=== PATIENT | female | born 1970 | race Caucasian/White ===

== ENCOUNTER 2017-05-06 09:06 | Emergency (ER) | payer SELFPAY ==
[~2017-05-06 09:06] MED LIST: ALBU6.7H INH; BACT800T5 PO; PRED20 PO
[2017-05-06 09:07] VITALS: BP 161/94; PULSE 75; RESP 16; TEMP 98.1; O2SAT 98
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
[2017-05-06] MEDS ORDERED: ORPHENADRINE INJ 60 MG/2 ML AMP IM ONE (09:45)
[2017-05-06] MEDS ORDERED: KETOROLAC TROMETHAMINE 60 MG/2 ML (IM) VIAL IM ONE (09:45)
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
[2017-05-06] MEDS ORDERED: ROBA500T PO (10:50)
[2017-05-06] MEDS ORDERED: IBUP800T23 PO (10:50)
[2017-05-06 11:05] VITALS: RESP 16
== END 2017-05-06 11:22 | disposition home or self-care (01) ==
LOC: NEPD 09:06
DX: M54.6 Pain in thoracic spine (principal); R51 Headache; F17.200 Nicotine dependence, unspecified, uncomplicated; W22.8XXA Striking against or struck by other objects, initial encounter
CPT/HCPCS: 72072; 96372; 99284; J1885; J2360

== ENCOUNTER 2017-05-10 18:32 | Emergency (ER) | payer SELFPAY ==
[~2017-05-10] VITALS: Ht 165.1 cm; Wt 95.0 kg
[~2017-05-10 18:32] MED LIST changes: -ALBU6.7H INH; -BACT800T5 PO; +IBUP800T23 PO; -PRED20 PO; +ROBA500T PO
[2017-05-10 18:34] VITALS: BP 187/103; PULSE 84; RESP 20; TEMP 98.8; O2SAT 94
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
[2017-05-10] MEDS ORDERED: LORazepam 2 MG/ML VIAL IM ONE (19:30)
[2017-05-10] MEDS ORDERED: KETOROLAC TROMETHAMINE 60 MG/2 ML (IM) VIAL IM ONE (19:30)
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
[2017-05-10] MEDS ORDERED: BACL20TA PO (20:14)
[2017-05-10] MEDS ORDERED: CODE30TA2 PO (20:14)
[2017-05-10 20:20] VITALS: BP 170/81; PULSE 73; RESP 16; O2SAT 96
== END 2017-05-10 20:46 | disposition home or self-care (01) ==
LOC: NEPC 18:32
DX: G44.209 Tension-type headache, unspecified, not intractable (principal); M62.838 Other muscle spasm; F17.200 Nicotine dependence, unspecified, uncomplicated
CPT/HCPCS: 70450; 72125; 84703; 96372; 99285; J1885; J2060